=== PATIENT | male | born 1945 | race Caucasian/White ===

== ENCOUNTER 2016-12-10 22:26 | Inpatient (IN) | payer MEDICARE ==
[~2016-12-10] VITALS: Ht 182.9 cm; Wt 115.0 kg
[2016-12-10] MEDS ORDERED: ALBU1.25 NEB (22:53)
[2016-12-10] MEDS ORDERED: LEVO75TA5 PO (22:53)
[2016-12-10] MEDS ORDERED: IPRA0.2S35 INH (22:53)
[2016-12-10] MEDS ORDERED: FURO40TA6 PO (22:53)
[2016-12-10] MEDS ORDERED: SIMV40TA3 PO (22:53)
[2016-12-10] MEDS ORDERED: CARV-39 PO (22:53)
[2016-12-10] MEDS ORDERED: MOME13HF INH (22:53)
[2016-12-10] MEDS ORDERED: ASPI-496 PO (22:53)
[2016-12-10] MEDS ORDERED: OMEP40CA6 PO (22:53)
[2016-12-10] MEDS ORDERED: SPIR25TA3 PO (22:53)
[2016-12-10] MEDS ORDERED: VALS320T2 PO (22:53)
[2016-12-10] MEDS ORDERED: CELE200C PO (22:53)
[2016-12-10] MEDS ORDERED: SODIUM CHLORIDE FLUSH 10ML SYR IVF ONE (23:00)
[2016-12-10 23:15] LABS: ASPARTATE AMINO TRANSFERASE 19 U/L (15-37); BLOOD UREA NITROGEN 25 mg/dL (7-18)
[2016-12-10 23:20] LABS: IS PT STATUS REG ER OR PRE ER? YES
[2016-12-10] MEDS ORDERED: SULF1TAB24 PO (23:32)
[2016-12-11] MEDS ORDERED: Enoxaparin 1 mg/kg protocol SQ ONE (00:30)
[2016-12-11] MEDS ORDERED: DOXYCYCLINE 100MG TABLET PO ONE (00:30)
[2016-12-11] MEDS ORDERED: PLEASE ENTER ALLERGIES MC SCH ×2 (00:30)
[2016-12-11] MEDS ORDERED: ENOXAPARIN 100 MG/ML SQ ONE (01:00)
[2016-12-11 01:17] VITALS: BP 114/73
[2016-12-11] MEDS ORDERED: ALBUTEROL SULFATE 2.5 MG/3 ML NPPB PRN (02:30)
[2016-12-11] MEDS ORDERED: IPRATROPIUM 0.5 MG/2.5 ML INHA IPPB PRN (02:30)
[2016-12-11] MEDS: SODIUM CHLORIDE 0.9% 1,000 ML IV SCH ×3 (03:25→22:07)
[2016-12-11] MEDS ORDERED: LABETALOL 5MG/ML, 20ML IVPush PRN (03:30)
[2016-12-11] MEDS ORDERED: POLYETHYLENE GLYCOL 17 GM PACKET PO PRN (03:30)
[2016-12-11] MEDS ORDERED: HEPARIN 5,000 UNITS/ML, 1ML SQ SCH (03:30)
[2016-12-11] MEDS ORDERED: DOCUSATE 100 MG CAPSULE PO PRN (03:30)
[2016-12-11] MEDS ORDERED: BISACODYL 10 MG SUPP PR PRN (03:30)
[2016-12-11] MEDS: AMPICILLIN/SULBACTAM 3 GM in SODIUM CHLORIDE 0.9% 100 ML IV SCH ×4 (03:54→22:57)
[2016-12-11] MEDS ORDERED: VANCOMYCIN PER PHARMACY MC PRN (04:00)
[2016-12-11] MEDS ORDERED: VANCOMYCIN 1,500 MG in SODIUM CHLORIDE 0.9% 250 ML IV ONE (04:30)
[2016-12-11] MEDS ORDERED: PHARMACOKINETIC MONITORING MC PRN (04:30)
[2016-12-11] MEDS ORDERED: ALBUTEROL/IPRATROPIUM 2.5MG/0.5MG, 3 ML ONE (05:05)
[2016-12-11] MEDS: LEVOTHYROXINE 75 MCG TABLET PO SCH (05:34)
[2016-12-11] MEDS: ACETAMINOPHEN 325 MG TABLET PO PRN ×2 (05:34→12:31)
[2016-12-11] MEDS ORDERED: ALBUTEROL/IPRATROPIUM 2.5MG/0.5MG, 3 ML NPPB PRN (06:00)
[2016-12-11] MEDS ORDERED: ALBUTEROL/IPRATROPIUM 2.5MG/0.5MG, 3 ML NPPB SCH (06:00)
[2016-12-11 09:24] LABS: IS PT STATUS REG ER OR PRE ER? NO
[2016-12-11 09:30] VITALS: BP 117/78
[2016-12-11] MEDS: FLUTICASONE/VILANTEROL 200-25MCG/INH INH SCH (10:25)
[2016-12-11] MEDS: OMEPRAZOLE 20 MG CAPSULE.DR PO SCH (10:26)
[2016-12-11] MEDS: CARVEDILOL 25 MG TABLET PO SCH ×2 (10:26→22:09)
[2016-12-11] MEDS ORDERED: GADOBUTROL 10 MMOL/10 ML PFS ONE (11:50)
[2016-12-11] MEDS: ENOXAPARIN 100 MG/ML SQ SCH (14:19)
[2016-12-11 14:58] VITALS: BP 115/70
[2016-12-11 21:20] VITALS: BP 108/69
[2016-12-11] MEDS: SIMVASTATIN 40 MG TABLET PO SCH (22:08)
[2016-12-11] MEDS: TRAZODONE 50MG TABLET PO PRN (22:08)
[2016-12-11] MEDS: ASPIRIN 81 MG TABLET EC PO SCH (22:08)
[2016-12-11] MEDS: VALSARTAN 320 MG TABLET PO SCH (22:08)
[2016-12-12 01:18] VITALS: BP 111/72
[2016-12-12] MEDS: ENOXAPARIN 100 MG/ML SQ SCH ×2 (02:59→17:07)
[2016-12-12] MEDS: ACETAMINOPHEN 325 MG TABLET PO PRN (03:55)
[2016-12-12] MEDS: AMPICILLIN/SULBACTAM 3 GM in SODIUM CHLORIDE 0.9% 100 ML IV SCH ×4 (05:06→22:48)
[2016-12-12] MEDS: SODIUM CHLORIDE 0.9% 1,000 ML IV SCH (05:10)
[2016-12-12 05:24] LABS: BLOOD UREA NITROGEN 17 mg/dL (7-18)
[2016-12-12] MEDS: HYDROcodone/APAP 5/325 TABLET PO PRN ×2 (06:36→20:53)
[2016-12-12] MEDS: LEVOTHYROXINE 75 MCG TABLET PO SCH (06:36)
[2016-12-12] MEDS: ALBUTEROL/IPRATROPIUM 2.5MG/0.5MG, 3 ML NPPB SCH ×4 (07:05→19:00)
[2016-12-12 07:11] VITALS: BP 117/71
[2016-12-12] MEDS: VANCOMYCIN 2,000 MG in SODIUM CHLORIDE 0.9% 500 ML IV SCH (09:00)
[2016-12-12] MEDS: OMEPRAZOLE 20 MG CAPSULE.DR PO SCH (09:46)
[2016-12-12] MEDS: CARVEDILOL 25 MG TABLET PO SCH ×2 (09:46→20:54)
[2016-12-12 14:00] VITALS: BP 104/66
[2016-12-12] MEDS ORDERED: OMNIPAQUE 350 MG/ML, 100ML BOTTLE ONE (17:00)
[2016-12-12] MEDS: FLUTICASONE/VILANTEROL 200-25MCG/INH INH SCH (17:07)
[2016-12-12 19:44] VITALS: BP 119/67
[2016-12-12] MEDS: ENOXAPARIN 40 MG/0.4 ML SQ SCH (19:47)
[2016-12-12] MEDS: ASPIRIN 81 MG TABLET EC PO SCH (20:53)
[2016-12-12] MEDS: TRAZODONE 50MG TABLET PO PRN (20:53)
[2016-12-12] MEDS: VALSARTAN 320 MG TABLET PO SCH (20:54)
[2016-12-12] MEDS: SIMVASTATIN 40 MG TABLET PO SCH (20:54)
[2016-12-12] MEDS: GUAIFENESIN/DM 200-20MG, 10ML UDC PO PRN (20:55)
[2016-12-13 02:33] VITALS: BP 134/71
[2016-12-13] MEDS: AMPICILLIN/SULBACTAM 3 GM in SODIUM CHLORIDE 0.9% 100 ML IV SCH ×3 (04:54→16:28)
[2016-12-13] MEDS: LEVOTHYROXINE 75 MCG TABLET PO SCH (04:58)
[2016-12-13] MEDS: HYDROcodone/APAP 5/325 TABLET PO PRN ×2 (04:58→20:47)
[2016-12-13 05:21] LABS: BLOOD UREA NITROGEN 13 mg/dL (7-18)
[2016-12-13] MEDS: ALBUTEROL/IPRATROPIUM 2.5MG/0.5MG, 3 ML NPPB SCH ×3 (07:20→20:00)
[2016-12-13 07:50] VITALS: BP 117/75
[2016-12-13] MEDS: FLUTICASONE/VILANTEROL 200-25MCG/INH INH SCH (08:13)
[2016-12-13] MEDS: VANCOMYCIN 2,000 MG in SODIUM CHLORIDE 0.9% 500 ML IV SCH (08:13)
[2016-12-13] MEDS: OMEPRAZOLE 20 MG CAPSULE.DR PO SCH (08:13)
[2016-12-13] MEDS: CARVEDILOL 25 MG TABLET PO SCH ×2 (08:13→20:47)
[2016-12-13 14:42] VITALS: BP 130/78
[2016-12-13] MEDS ORDERED: CEFAZOLIN 1,000 MG IM SCH (17:00)
[2016-12-13] MEDS: CEFAZOLIN PMX 1GM/50ML 50 ML IV SCH (18:20)
[2016-12-13] MEDS: ENOXAPARIN 40 MG/0.4 ML SQ SCH (19:38)
[2016-12-13 19:41] VITALS: BP 132/75
[2016-12-13] MEDS: ASPIRIN 81 MG TABLET EC PO SCH (20:47)
[2016-12-13] MEDS: GUAIFENESIN/DM 200-20MG, 10ML UDC PO PRN (20:47)
[2016-12-13] MEDS: SIMVASTATIN 40 MG TABLET PO SCH (20:47)
[2016-12-13] MEDS: TRAZODONE 50MG TABLET PO PRN (20:48)
[2016-12-13] MEDS: VALSARTAN 320 MG TABLET PO SCH (20:48)
[2016-12-14] MEDS: CEFAZOLIN PMX 1GM/50ML 50 ML IV SCH ×2 (02:10→10:09)
[2016-12-14 02:53] VITALS: BP 125/73
[2016-12-14 05:45] LABS: BLOOD UREA NITROGEN 11 mg/dL (7-18)
[2016-12-14] MEDS: LEVOTHYROXINE 75 MCG TABLET PO SCH (06:00)
[2016-12-14 06:44] VITALS: BP 146/78
[2016-12-14] MEDS: HYDROcodone/APAP 5/325 TABLET PO PRN ×2 (07:12→20:49)
[2016-12-14] MEDS: ALBUTEROL/IPRATROPIUM 2.5MG/0.5MG, 3 ML NPPB SCH ×4 (07:34→19:14)
[2016-12-14] MEDS: FLUTICASONE/VILANTEROL 200-25MCG/INH INH SCH (09:18)
[2016-12-14] MEDS: CARVEDILOL 25 MG TABLET PO SCH ×2 (09:18→20:49)
[2016-12-14] MEDS: predniSONE 50MG TABLET PO SCH (10:03)
[2016-12-14 14:16] VITALS: BP 126/66
[2016-12-14] MEDS: CEPHALEXIN 500 MG CAPSULE PO SCH ×2 (14:49→22:07)
[2016-12-14] MEDS: GUAIFENESIN/DM 200-20MG, 10ML UDC PO PRN (20:47)
[2016-12-14 20:48] VITALS: BP 152/69
[2016-12-14] MEDS: VALSARTAN 320 MG TABLET PO SCH (20:48)
[2016-12-14] MEDS: ENOXAPARIN 40 MG/0.4 ML SQ SCH (20:48)
[2016-12-14] MEDS: SIMVASTATIN 40 MG TABLET PO SCH (20:48)
[2016-12-14] MEDS: ASPIRIN 81 MG TABLET EC PO SCH (20:48)
[2016-12-14] MEDS: TRAZODONE 50MG TABLET PO PRN (22:07)
[2016-12-15 02:59] VITALS: BP 127/73
[2016-12-15 04:59] LABS: BLOOD UREA NITROGEN 12 mg/dL (7-18)
[2016-12-15] MEDS: CEPHALEXIN 500 MG CAPSULE PO SCH ×2 (06:00→14:30)
[2016-12-15] MEDS: LEVOTHYROXINE 75 MCG TABLET PO SCH (06:00)
[2016-12-15] MEDS: predniSONE 50MG TABLET PO SCH (09:30)
[2016-12-15] MEDS: CARVEDILOL 25 MG TABLET PO SCH (09:30)
== END 2016-12-15 17:00 | disposition home or self-care (01) | DRG 871 ==
LOC: ED 23:40 → EDIP 12-11 00:12 → 4WST 12-11 01:17 → DCLOUNGE 12-15 16:19
PROVIDERS: ADMIT Internal Medicine; ATTEND Internal Medicine
PROC: 5A09457 Assistance with Respiratory Ventilation, 24-96 Consecutive Hours, Continuous Positive Airway Pressure (ICD-10-PCS; principal; 2016-12-13)
DX: A41.9 Sepsis, unspecified organism (principal); N17.0 Acute kidney failure with tubular necrosis; L03.116 Cellulitis of left lower limb; I50.22 Chronic systolic (congestive) heart failure; E87.1 Hypo-osmolality and hyponatremia; D68.51 Activated protein C resistance; L02.416 Cutaneous abscess of left lower limb; R55 Syncope and collapse; J44.9 Chronic obstructive pulmonary disease, unspecified; E03.9 Hypothyroidism, unspecified; F12.90 Cannabis use, unspecified, uncomplicated; Z66 Do not resuscitate; D75.89 Other specified diseases of blood and blood-forming organs; G47.33 Obstructive sleep apnea (adult) (pediatric); S60.511A Abrasion of right hand, initial encounter; N18.9 Chronic kidney disease, unspecified; L53.9 Erythematous condition, unspecified; D72.828 Other elevated white blood cell count; F10.10 Alcohol abuse, uncomplicated; B95.61 Methicillin susceptible Staphylococcus aureus infection as the cause of diseases classified elsewhere; Z85.828 Personal history of other malignant neoplasm of skin; Z90.49 Acquired absence of other specified parts of digestive tract; Z82.49 Family history of ischemic heart disease and other diseases of the circulatory system; Z87.891 Personal history of nicotine dependence
CPT/HCPCS: 36415; 70450; 70553; 71010; 71275; 72125; 78582; 80048; 80053; 80202; 82607; 82746; 83735; 83880; 84439; 84443; 84484; 85025; 85379; 85610; 85730; 87070; 87077; 87186; 87205; 93005; 93306; 93880; 93970; 94640; 95819; 99285; A9585; J0295; J0690; J1650; J3370; J7620; Q9967; A9540; A9558; C9898; J7030; J7040; J7050; J7512

== ENCOUNTER 2017-02-27 07:29 | Day surgery (SDC) | payer MEDICARE ==
[2017-02-26 11:41] LABS: ASPARTATE AMINO TRANSFERASE 25 U/L (15-37); BLOOD UREA NITROGEN 15 mg/dL (7-18)
[~2017-02-27] VITALS: Ht 182.9 cm; Wt 105.3 kg
[~2017-02-27 07:29] MED LIST: ALBU1.25 NEB; ASPI-496 PO; B CO PO; CARV-39 PO; CELE200C PO; CHRO200C PO; DOXY100T10 PO; ECHI125T PO; FURO40TA6 PO; GUAI1TBM PO; IBUP1TAB11 PO; IBUP200T64 PO; IPRA0.2S35 INH; LACT1CAP37 PO; LEVO75TA5 PO; MAGN420T PO; MELO-190 PO; MOME13HF INH; MULT-82 PO; NAPR220C2 PO; OMEG1CAP34 PO; OMEP40CA6 PO; PRED20TA PO; RED600TA PO; SIMV40TA3 PO; SPIR25TA3 PO; SULF1TAB24 PO; UBID100C24 PO; UMEC1DIS INH; VALS320T2 PO; potassium PO
[2017-02-27 08:26] VITALS: BP 126/81
[2017-02-27] MEDS ORDERED: LACTATED RINGERS 1,000 ML IV SCH (08:28)
[2017-02-27] MEDS ORDERED: MIDAZOLAM 1 MG/ML, 2ML ONE (09:19)
[2017-02-27] MEDS ORDERED: FENTANYL PF 250 MCG/5ML ONE (09:19)
[2017-02-27] MEDS ORDERED: PROPOFOL 10 MG/ML, 20ML ONE ×2 (09:52)
[2017-02-27] MEDS ORDERED: LIDOCAINE 2% 100MG/5ML SYRINGE ONE (09:52)
[2017-02-27] MEDS ORDERED: ALBUTEROL SULFATE 200 PUFFS/8.5 GR INH ONE (09:52)
[2017-02-27] MEDS ORDERED: ROCURONIUM 10 MG/ML ONE (09:52)
[2017-02-27] MEDS ORDERED: SUCCINYLCHOLINE 20 MG/ML, 10ML ONE (09:52)
[2017-02-27] MEDS ORDERED: ONDANSETRON 2MG/ML, 2ML ONE (09:52)
[2017-02-27] MEDS ORDERED: DEXAMETHASONE 4 MG/ML, 5ML ONE (09:52)
[2017-02-27] MEDS ORDERED: ONDANSETRON 2MG/ML, 2ML IVPush PRN (11:30)
[2017-02-27] MEDS ORDERED: HYDROmorphone 1 MG/ML, 1ML IV PRN (11:30)
[2017-02-27] MEDS ORDERED: OXYcodone 5 MG/5 ML ORAL.SOL UDC PO PRN (11:30)
[2017-02-27] MEDS ORDERED: EPHEDRINE 50 MG/ML, 1ML IVPush PRN (11:30)
[2017-02-27] MEDS ORDERED: ALBUTEROL/IPRATROPIUM 2.5MG/0.5MG, 3 ML NPPB PRN (11:30)
[2017-02-27] MEDS ORDERED: FENTANYL PF 100 MCG/2ML IV PRN (11:30)
[2017-02-27] MEDS ORDERED: MIDAZOLAM 1 MG/ML, 2ML IV PRN (11:30)
[2017-02-27] MEDS ORDERED: MEPERIDINE/PF 25MG/0.5ML IVPush PRN (11:30)
== END 2017-02-27 13:00 ==
LOC: OUT 07:29
PROVIDERS: ATTEND Internal Medicine Critical Care Medicine
DX: R91.8 Other nonspecific abnormal finding of lung field (principal); J98.8 Other specified respiratory disorders; Z79.82 Long term (current) use of aspirin
CPT/HCPCS: 31624; 31627; 31628; 31629; 36415; 71010; 76001; 80053; 88112; 88172; 88173; 88177; 88305; 94640; J0330; J1100; J2250; J2405; J2704; J3010; J7120; J7620